=== PATIENT | female | born 1970 | race Caucasian/White ===

== ENCOUNTER 2018-03-22 20:46 | Emergency (ER) | payer SELFPAY ==
[2018-03-22] MEDS ORDERED: LIDOCAINE UROJECT 10 ML APPL MM ONE ×2 (20:55→22:31)
[2018-03-22] MEDS ORDERED: HYDROCODONE/APAP 5/325MG TABLET PO ONE ×2 (20:56→22:25)
--- NOTE | 2018-03-22 20:59 | Emergency Department Record ---
History of Present Illness - General Chief complaint: Female Urogenital Problem Stated complaint: VAGINAL BURNING Time Seen by Provider: 03/22/18 20:51 Source: Patient, Family Mode of Arrival: Ambulatory Limitations: No limitations - History of Present Illness Initial comments: 47 yo female presents with two days of urinary symptoms of burning and itching in the vaginal area. She states the labia are raw and irritated. No fevers. No bleeding. She has had yeast infections in the past. No vomiting or diarrhea. No abdominal pain. It is very uncomfortable to urinate. She started over the counter Monostat yesterday. MD Complaint: Dysuria, Vaginal discharge, Other -: Days(s) (2) Location: Labia, Perineum Radiation: Non-radiating Severity: Severe Quality: Burning Consistency: Constant Improves with: None Worsens with: Urination Patient : No Associated Symptoms: Dysuria, Vaginal discharge - Related Data Previous Rx's Medication Instructions Recorded Fluconazole [Diflucan] 150 mg PO ONCE #1 tab 03/22/18 Nitrofurantoin Monohyd/M-Cryst 100 mg PO BID #14 capsule 03/22/18 [Macrobid 100 mg Capsule] Nystatin/Triamcin 60 gm TP BID #1 cream..g. 03/22/18 [Nystatin-Triamcinolone Cream] Allergies Allergy/AdvReac Type Severity Reaction Status Date / Time Penicillins Allergy Unknown HIVES Verified 06/20/14 08:15 Review of Systems Constitutional: Denies: Chills, Fever, Weakness Eyes: Denies: Eye discharge ENT: Denies: Congestion, Throat pain Respiratory: Denies: Cough Cardiovascular: Denies: Chest pain, Palpitations, Syncope Endocrine: Denies: Fatigue, Polydipsia, Polyuria Gastrointestinal: Denies: Abdominal pain, Diarrhea, Nausea, Vomiting Genitourinary: Reports: Discharge, Dyspareunia, Dysuria, Frequency. Denies: Abnormal menses, Hematuria, Incontinence, Urgency Musculoskeletal: Denies: Arthralgia, Back pain, Neck pain Skin: Denies: Bruising, Change in color, Rash Neurological: Denies: Headache, Weakness Psychiatric: Denies: Anxiety Hematological/Lymphatic: Denies: Blood Clots, Easy bleeding, Easy bruising Past Medical History - SOCIAL HISTORY Smoking Status: Current every day smoker - RESPIRATORY Hx Respiratory Disorders: No - CARDIOVASCULAR Hx Cardio Disorders: No - NEURO Hx Neuro Disorders: No - GI Hx GI Disorders: No - Hx Genitourinary Disorders: No - ENDOCRINE Hx Endocrine Disorders: No - MUSCULOSKELETAL Hx Musculoskeletal Disorders: No - PSYCH Hx Psych Problems: No - HEMATOLOGY/ONCOLOGY Hx Hematology/Oncology Disorders: No Family Medical History Hx Cancer: Grandparents Hx Diabetes: Grandparents Physical Exam - General General Appearance: Alert, Oriented x3, Cooperative, No acute distress Limitations: No limitations - Head Head exam: Atraumatic - Eye Eye exam: Normal appearance, PERRL Pupils: Normal accommodation - ENT ENT exam: Normal exam Ear exam: Normal external inspection Nasal Exam: Normal inspection Mouth exam: Normal external inspection - Neck Neck exam: Normal inspection - GI/Abdominal GI/Abdominal exam: Soft. negative: Distended, Guarding, Tenderness - Rectal Rectal exam: Deferred - exam: Abnormal external exam (erythema mild swelling, no lesions or blisters) , Normal bimanual exam, Normal speculum exam, Vaginal discharge (minimal thin), Vaginal erythema. negative: Adnexal mass (L), Adnexal mass (R), Adnexal tenderness (L), Adnexal tenderness (R), cervical motion tenderness, Vaginal bleeding - Extremities Extremities exam: Normal inspection - Neurological Neurological exam: Alert, Oriented X3 - Psychiatric Psychiatric exam: Normal affect, Normal mood - Skin Skin exam: Dry, Intact, Normal color, Warm Course - Reevaluation(s) Reevaluation #1: 03/22/18 21:39 Wet prep is negative 03/22/18 22:14 UA reviewed. Nitrites with few bacteria, yeast, WBC's The examination is consistent with yeast vaginitis Diflucan provided in the ED Macrobid provided for UTI 03/22/18 Disposition Disposition: Discharge Clinical Impression: Yeast vaginitis Urinary tract infection Qualifiers: Urinary tract infection type: site unspecified Hematuria presence: without hematuria Qualified Code(s): N39.0 - Urinary tract infection, site not specified Disposition: Home, Self-Care Condition: (1) Good Instructions: Urinary Tract Infection in Women (ED), Vulvovaginal Candidiasis ( ED) Additional Instructions: Call your doctor tomorrow for close follow up Return if worse, fever, or any other concerns Prescriptions: Fluconazole [Diflucan] 150 mg PO ONCE #1 tab Nitrofurantoin Monohyd/M-Cryst [Macrobid 100 mg Capsule] 100 mg PO BID #14 capsule Nystatin/Triamcin [Nystatin-Triamcinolone Cream] 60 gm TP BID #1 cream..g. Forms: Patient Portal Access Time of Disposition: 22:16 Quality - Quality Measures Quality Measures: N/A - Blood Pressure Screening Does Patient Have Any of the Following: No Blood Pressure Classification: Hypertensive Reading Systolic Measurement: 139 Diastolic Measurement: 93 Screening for High Blood Pressure: < Pre-Hypertensive BP, F/U Documented > [ G8950] Pre-Hypertensive Follow-up Interventions: Referral to alternative/primary care provider.
[2018-03-22 21:48] LABS: URINE APPEARANCE SL CLOUDY; URINE BILIRUBIN MODERATE (NEGATIVE); URINE BLOOD TRACE-I (NEGATIVE); URINE COLOR ORANGE; URINE KETONE TRACE (NEGATIVE); URINE LEUKOCYTE ESTERASE SMALL (NEGATIVE); URINE NITRITE POSITIVE (NEGATIVE)
[2018-03-22 21:57] LABS: URINE RBC 0 - 2 (NONE SEEN)
[2018-03-22 21:58] LABS: HCG,QUALITATIVE URINE NEGATIVE (NEGATIVE); URINE BACTERIA FEW; URINE MUCUS LIGHT; URINE YEAST FEW
[2018-03-22] MEDS ORDERED: NITROFURANTOIN MONO 100 MG CAPSULE PO ONE (22:15)
[2018-03-22] MEDS ORDERED: FLUCONAZOLE 100 MG TABLET PO ONE (22:15)
[2018-03-24 09:29] LABS: GC SPECIMEN TYPE Vaginal
== END 2018-03-22 22:38 | disposition home or self-care (01) ==
LOC: ER 20:46
DX: B37.3 Candidiasis of vulva and vagina (principal); N39.0 Urinary tract infection, site not specified; R30.0 Dysuria; F17.210 Nicotine dependence, cigarettes, uncomplicated
CPT/HCPCS: 81001; 81025; 87210; 99284

== ENCOUNTER 2018-03-25 17:30 | Emergency (ER) | payer SELFPAY ==
[2018-03-25 18:18] LABS: URINE APPEARANCE SL CLOUDY; URINE BILIRUBIN NEGATIVE (NEGATIVE); URINE BLOOD SMALL (NEGATIVE); URINE COLOR YELLOW; URINE GLUCOSE (UA) NEGATIVE (NEGATIVE); URINE KETONE NEGATIVE (NEGATIVE); URINE LEUKOCYTE ESTERASE NEGATIVE (NEGATIVE); URINE NITRITE NEGATIVE (NEGATIVE); URINE PROTEIN NEGATIVE (NEGATIVE); URINE UROBILINOGEN 0.2 E.U./dL (0.20 - 1.00)
[2018-03-25] MEDS ORDERED: LIDOCAINE UROJECT 10 ML APPL MM ONE (18:29)
[2018-03-25 18:30] LABS: URINE BACTERIA FEW; URINE EPITHELIAL CELLS 0 - 2 (FEW); URINE MUCUS MODERATE; URINE WBC 0 - 2 (0-2/hpf)
--- NOTE | 2018-03-25 18:34 | Emergency Department Record ---
History of Present Illness - General Chief complaint: Female Urogenital Problem Stated complaint: VAGINAL PAIN Time Seen by Provider: 03/25/18 18:29 Source: Patient Mode of Arrival: Ambulatory - History of Present Illness Initial comments: The patient was sen here Thursday Night 03-22-18, for this same condition, only now that she is using nystatin cream to her vulvae and took a Diflucan pill her discomfort has worsened so much she cannot sit upright. She is able to urinate, but her urine morales her skin severely. She states the problem is only external. She denies fevers, chills abdominal pain or history of herpes. Onset/Timin -: Days(s) Location: Perineum Radiation: Non-radiating Severity: Severe Severity scale (1-10): 10 Quality: Sharp Consistency: Constant Improves with: None Worsens with: None Associated Symptoms: Denies other symptoms - Related Data Previous Rx's Medication Instructions Recorded Fluconazole [Diflucan] 150 mg PO ONCE #1 tab 03/22/18 Nitrofurantoin Monohyd/M-Cryst 100 mg PO BID #14 capsule 03/22/18 [Macrobid 100 mg Capsule] Nystatin/Triamcin 60 gm TP BID #1 cream..g. 03/22/18 [Nystatin-Triamcinolone Cream] Fluconazole [Diflucan] 150 mg PO DAILY #5 tab 03/25/18 Lidocaine Visc 2% 15Ml [Lidocaine 15 ml MM NOW #1 solution 03/25/18 HCl Viscous] Allergies Allergy/AdvReac Type Severity Reaction Status Date / Time Penicillins Allergy Unknown HIVES Verified 03/25/18 17:44 Travel Screening - Travel/Exposure Within Last 30 Days Have you traveled within the last 30 days?: No Review of Systems Reviewed: No additional complaints except as noted below Constitutional: Reports: As per HPI. Denies: Chills, Fever, Malaise, Night sweats, Weakness, Weight change Eyes: Reports: As per HPI. Denies: Eye discharge, Eye pain, Photophobia, Vision change ENT: Reports: As per HPI. Denies: Congestion, Dental pain, Ear pain, Epistaxis , Hearing loss, Throat pain Respiratory: Reports: As per HPI. Denies: Cough, Dyspnea, Hemoptysis, Stridor, Wheezes Cardiovascular: Reports: As per HPI. Denies: Arrhythmia, Chest pain, Dyspnea on exertion, Edema, Murmurs, Orthopnea, Palpitations, Paroxysmal nocturnal dyspnea, Rheumatic Fever, Syncope Endocrine: Reports: As per HPI. Denies: Fatigue, Heat or cold intolerance, Polydipsia, Polyuria Gastrointestinal: Reports: As per HPI. Denies: Abdominal pain, Constipation, Diarrhea, Hematemesis, Hematochezia, Melena, Nausea, Vomiting Genitourinary: Reports: As per HPI. Denies: Abnormal menses, Discharge, Dyspareunia, Dysuria, Frequency, Hematuria, Incontinence, Retention, Urgency Musculoskeletal: Reports: As per HPI. Denies: Arthralgia, Back pain, Gout, Joint swelling, Myalgia, Neck pain Skin: Reports: As per HPI. Denies: Bruising, Change in color, Change in hair/ nails, Lesions, Pruritus, Rash Neurological: Reports: As per HPI. Denies: Abnormal gait, Confusion, Headache, Numbness, Paresthesias, Seizure, Tingling, Tremors, Vertigo, Weakness Psychiatric: Reports: As per HPI. Denies: Anxiety, Auditory hallucinations, Depression, Homicidal thoughts, Suicidal thoughts, Visual hallucinations Hematological/Lymphatic: Reports: As per HPI. Denies: Anemia, Blood Clots, Easy bleeding, Easy bruising, Swollen glands Past Medical History - SOCIAL HISTORY Smoking Status: Current every day smoker Alcohol Use: None Drug Use: None - RESPIRATORY Hx Respiratory Disorders: No - CARDIOVASCULAR Hx Cardio Disorders: No - NEURO Hx Neuro Disorders: No - GI Hx GI Disorders: No - Hx Genitourinary Disorders: No - ENDOCRINE Hx Endocrine Disorders: No - MUSCULOSKELETAL Hx Musculoskeletal Disorders: No - PSYCH Hx Psych Problems: No - HEMATOLOGY/ONCOLOGY Hx Hematology/Oncology Disorders: No Family Medical History Any Significant Family History?: Yes Hx Cancer: Grandparents Hx Diabetes: Grandparents Physical Exam - General General Appearance: Alert, Oriented x3, Cooperative, No acute distress - Head Head exam: Normal inspection - Eye Eye exam: Normal appearance, PERRL Pupils: Normal accommodation - ENT ENT exam: Normal exam, Mucous membranes moist, Normal external ear exam, Normal orophraynx, TM's normal bilaterally Ear exam: Normal external inspection. negative: External canal tenderness Nasal Exam: Normal inspection. negative: Discharge, Sinus tenderness Mouth exam: Normal external inspection, Tongue normal Teeth exam: Normal inspection. negative: Dental caries Throat exam: Normal inspection. negative: Tonsillar erythema, Tonsillar exudate - Neck Neck exam: Normal inspection, Full ROM. negative: Tenderness - Respiratory Respiratory exam: Normal lung sounds bilaterally. negative: Respiratory distress - Cardiovascular Cardiovascular Exam: Regular rate, Normal rhythm, Normal heart sounds - GI/Abdominal GI/Abdominal exam: Soft, Normal bowel sounds. negative: Tenderness - Rectal Rectal exam: Deferred - exam: Deferred, Other (external genitalia with diffusely erythematous skin with superficial erosions, no vessicles, very exquisitely tender, extending to inner thighs slightly. No cellulitis. ) - Extremities Extremities exam: Normal inspection, Full ROM, Normal capillary refill. negative: Tenderness - Back Back exam: Reports: Normal inspection, Full ROM. Denies: Muscle spasm, Rash noted, Tenderness - Neurological Neurological exam: Alert, Normal gait, Oriented X3, Reflexes normal - Psychiatric Psychiatric exam: Normal affect, Normal mood - Skin Skin exam: Dry, Intact, Normal color, Warm Course Vital Signs 03/25/18 17:39 Temperature 97.9 F Pulse Rate 81 Respiratory 16 Rate Blood Pressure 145/92 Pulse Ox 98 - Reevaluation(s) Reevaluation #1: The patient is wondering if the nystatin cream is making it worse. Will DC the nystatin, apply lidocaine jelly now. Gynecology referral ordered. 03/25/18 18:34 Medical Decision Making - Management Options MDM Management: Additional Work-up Planned (e.g. ADM/Transfer/OP Study) ( gynecology referral) - Lab Data Lab Results 03/25/18 Range/Units 17:50 Urine Color Yellow Urine Appearance Sl cloudy Urine pH 6.0 (5.0-8.0) Ur Specific [place] >= 1.030 (1.002-1.030) Urine Protein Negative (NEGATIVE) Urine Glucose (UA) Negative (NEGATIVE) Urine Ketones Negative (NEGATIVE) Urine Blood Small H (NEGATIVE) Urine Nitrite Negative (NEGATIVE) Urine Bilirubin Negative (NEGATIVE) Urine Urobilinogen 0.2 (0.20 - 1.00) E.U./dL Ur Leukocyte Esterase Negative (NEGATIVE) Disposition Disposition: Discharge Clinical Impression: Candidal vulvitis Disposition: Home, Self-Care Condition: (2) Stable Instructions: Contact Dermatitis (ED) Additional Instructions: Gynecology Referral for office. Discontinue Nystatin. Diflucan 150mg daily for 5 days. Siz baths for urination, and for soaks for comfort as many ties daily as needed. Lidocaine jelly to area for comfort as needed. Tylenol alternated with ibuprofen as directed as needed for pain. Prescriptions: Fluconazole [Diflucan] 150 mg PO DAILY #5 tab Lidocaine Visc 2% 15Ml [Lidocaine HCl Viscous] 15 ml MM NOW #1 solution Referrals: CARLO GORDON D.O. [DOCTOR OF OSTEOPATH] - Quality - Quality Measures Quality Measures: N/A - Blood Pressure Screening Does Patient Have Any of the Following: No Blood Pressure Classification: Hypertensive Reading Systolic Measurement: 145 Diastolic Measurement: 92 Screening for High Blood Pressure: < Pre-Hypertensive BP, F/U Documented > [ G8950] Pre-Hypertensive Follow-up Interventions: Follow-up with rescreen every year.
== END 2018-03-25 18:54 | disposition home or self-care (01) ==
LOC: ER 17:30
DX: B37.3 Candidiasis of vulva and vagina (principal); F17.210 Nicotine dependence, cigarettes, uncomplicated
CPT/HCPCS: 81001; 99283

== ENCOUNTER 2018-04-01 16:42 | Emergency (ER) | payer SELFPAY ==
--- NOTE | 2018-04-01 17:17 | Emergency Department Record ---
History of Present Illness - General Chief complaint: Female Urogenital Problem Stated complaint: UTI Time Seen by Provider: 04/01/18 16:47 Source: Patient Mode of Arrival: Ambulatory Limitations: No limitations - History of Present Illness Initial comments: The patient is here due to a 2 week hx of labial pain. She has been to the ER twice for it in the past and has had neg swabs for GC, Chlamydia, Yeast and BV. She was treated with Macrobid and for a yeast infection on both visits. Now she states the pain is not better and she has been unable to see a Specialist as she was directed to do. MD Complaint: Other Onset/Timin -: Week(s) Location: [place] - Related Data Previous Rx's Medication Instructions Recorded Acyclovir 400 mg PO TID #21 tablet 04/01/18 Naproxen [Naprosyn] 500 mg PO BID #14 tablet. 04/01/18 Allergies Allergy/AdvReac Type Severity Reaction Status Date / Time Penicillins Allergy Unknown HIVES Verified 03/25/18 17:44 Travel Screening - Travel/Exposure Within Last 30 Days Have you traveled within the last 30 days?: No Review of Systems Constitutional: Denies: Chills, Fever Past Medical History - SOCIAL HISTORY Smoking Status: Current every day smoker Alcohol Use: None Drug Use: None - RESPIRATORY Hx Respiratory Disorders: No - CARDIOVASCULAR Hx Cardio Disorders: No - NEURO Hx Neuro Disorders: No - GI Hx GI Disorders: No - Hx Genitourinary Disorders: No - ENDOCRINE Hx Endocrine Disorders: No - MUSCULOSKELETAL Hx Musculoskeletal Disorders: No - PSYCH Hx Psych Problems: No - HEMATOLOGY/ONCOLOGY Hx Hematology/Oncology Disorders: No Family Medical History Any Significant Family History?: Yes Hx Cancer: Grandparents Hx Diabetes: Grandparents Physical Exam - General General Appearance: Alert, Oriented x3, Cooperative, No acute distress - Head Head exam: Atraumatic, Normocephalic, Normal inspection - Eye Eye exam: Normal appearance, PERRL - Respiratory Respiratory exam: Normal lung sounds bilaterally. negative: Respiratory distress - Cardiovascular Cardiovascular Exam: Regular rate, Normal rhythm, Normal heart sounds - GI/Abdominal GI/Abdominal exam: Soft, Normal bowel sounds. negative: Tenderness - exam: Abnormal external exam, Other (The nurse Milo was in the room for the exam and states the lesions do appear improved from last week.). negative: Adnexal mass (L), Adnexal mass (R), Normal external exam (There are diffuse superficial erosions to the bilateral labia majora areas with very slight edema and tenderness. The Labia minora and external vaginal vault appear normal.) - Extremities Extremities exam: Normal inspection, Full ROM, Normal capillary refill. negative: Tenderness - Neurological Neurological exam: Alert. negative: Motor sensory deficit Course Vital Signs 04/01/18 16:50 Temperature 98.2 F Pulse Rate 98 H Respiratory 16 Rate Blood Pressure 129/82 Pulse Ox 99 - Reevaluation(s) Reevaluation #1: I did explain to the patient the need for F/U with [facility] which is the same as the previous 2 ED visits. We will send of an HSV swab but since the lesions appear to be healing I doubt it will be positive. We will treat the patient for Herpes and again encourage F/U with [facility]. 04/01/18 17:36 Reevaluation #2: I also did discuss the patient's anemia and elevated LFT's with her and the need for an Iron supplement and F/U with her PCP. 04/01/18 17:59 04/02/18 07:04 Medical Decision Making - Lab Data Result diagrams: 04/01/18 17:15 04/01/18 17:15 Disposition Disposition: Discharge Clinical Impression: Vaginitis Qualifiers: Chronicity: subacute Qualified Code(s): N76.1 - Subacute and chronic vaginitis Disposition: Home, Self-Care Condition: (2) Stable Instructions: Vaginitis (ED) Additional Instructions: Please take the Acyclovir as directed and please see your [facility] specialist [facility] as previously directed. Return to the ER for any worsening symptoms. Please see your family doctor for your chronic anemia and please start using an OTC iron pill. Prescriptions: Acyclovir 400 mg PO TID #21 tablet Naproxen [Naprosyn] 500 mg PO BID #14 tablet.dr Forms: Patient Portal Access Time of Disposition: 17:41 Quality - Quality Measures Quality Measures: N/A - Blood Pressure Screening View Details: Yes Does Patient Have Any of the Following: No Blood Pressure Classification: Pre-Hypertensive BP Reading Systolic Measurement: 129 Diastolic Measurement: 82 Screening for High Blood Pressure: < Pre-Hypertensive BP, F/U Documented > [ G8950] Pre-Hypertensive Follow-up Interventions: Referral to alternative/primary care provider.
[2018-04-01] MEDS ORDERED: NAPROXEN 250 MG TABLET PO ONE (17:41)
[2018-04-01] MEDS ORDERED: ACYCLOVIR 200 MG CAPSULE PO ONE (17:45)
[2018-04-01 17:47] LABS: URINE APPEARANCE CLEAR; URINE BILIRUBIN NEGATIVE (NEGATIVE); URINE BLOOD LARGE (NEGATIVE); URINE COLOR YELLOW; URINE GLUCOSE (UA) NEGATIVE (NEGATIVE); URINE KETONE TRACE (NEGATIVE); URINE NITRITE NEGATIVE (NEGATIVE); URINE PROTEIN NEGATIVE (NEGATIVE); URINE UROBILINOGEN 0.2 E.U./dL (0.20 - 1.00)
[2018-04-01 17:49] LABS: BASO % 1.2 % (0-6); EOS % 2.9 % (0-6); GRAN % 68.8 % (47-80); HEMATOCRIT 34.2 % (35.0-47.0); HEMOGLOBIN 10.5 gm/dl (11.6-16.0); LYMPH % 19.4 % (16-45); MEAN CORPUSCULAR HEMOGLOBIN 20.2 pg (27-33); MEAN CORPUSCULAR HGB CONC 30.7 g/dl (32-36); MONO % 7.7 % (0-9); PLATELET COUNT 337 K/uL (130-400); RED BLOOD COUNT 5.19 M/uL (3.80-5.40); RED CELL DISTRIBUTION WIDTH 20.5 % (11.5-14.5); WHITE BLOOD COUNT W/O DIFF 6.7 K/uL (4.2-12.2)
[2018-04-01 17:53] LABS: HCG,QUALITATIVE URINE NEGATIVE (NEGATIVE)
[2018-04-01 17:54] LABS: URINE LEUKOCYTE ESTERASE TRACE (NEGATIVE)
[2018-04-01 17:55] LABS: URINE BACTERIA FEW
[2018-04-01 17:57] LABS: MEAN CELL VOLUME 65.9 fl (81-97)
[2018-04-01 18:20] LABS: BLOOD UREA NITROGEN 5 mg/dL (6-20); CREATININE 0.6 mg/dL (0.5-0.9); EST GLOMERULAR FILTRATION RATE > 60 mL/min
[2018-04-01 18:22] LABS: GLUCOSE,RANDOM 100 mg/dL (74-109)
[2018-04-01 18:25] LABS: ALB/GLOB RATIO 1.3 (1.1-1.8); ALBUMIN 3.9 g/dL (4.0-5.0); ALKALINE PHOSPHATASE 91 U/L (35-104); ALT/SGPT 81 U/L (<33); AST/SGOT 58 U/L (10.0-35.0)
[2018-04-02 17:23] LABS: SPECIMEN TYPE Not specified
== END 2018-04-01 18:37 | disposition home or self-care (01) ==
LOC: ER 16:42
DX: N76.1 Subacute and chronic vaginitis (principal); R94.5 Abnormal results of liver function studies; D64.9 Anemia, unspecified; F17.210 Nicotine dependence, cigarettes, uncomplicated
CPT/HCPCS: 80053; 81001; 81025; 85025; 99284